=== PATIENT | female | born 1995 | race Caucasian/White ===

== ENCOUNTER 2024-01-10 19:29 | Emergency (ER) | payer OTHER, SELFPAY ==
[2024-01-10 19:35] VITALS: BP 114/70; BMI 24.1
[2024-01-10] MEDS: RABAVERT RABIES VACC W-DILUENT 2.5 UNIT IM (20:16)
--- NOTE | 2024-01-10 20:39 | ED.GENMED ---
History of Present Illness
General
Chief Complaint: Rabies
Source: patient
Exam Limitations: none
Time Seen by Provider: 01/10/24 19:54
Nursing documentation reviewed up to this point in time: agreed with
Travel History
Have you had any contact with someone who has COVID-19?: No
Do you have any symptoms of coronavirus? Fever > 100 degrees, chills, cough, shortness of breath, sore throat, loss of taste or smell, muscle aches, or headache?: No
History of Present Illness
History of Present Illness:
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 She went to urgent care and got a tetanus shot. They sent her here for her rabies vaccines.
Past History
Past History
ED Past Medical History: None
ED Past Surgical History: None
Social History
Tobacco: Non-smoker
Alcohol: None
Drug: None
Personal: Single
Living: with roommate
Employment: Student
Review of Systems
Review of Systems
Allergies reviewed?: Yes
All Other Systems: ROS reviewed and negative except as documented in HPI and ROS
Skin: Reports other (Cat bite pad of left index finger)
Phy Exam
Physical Exam
Physical Exam:
PHYSICAL EXAMINATION:
General: no apparent distress, not acutely ill
Neuro: alert and oriented.
Psychiatric: well kept. interactive and cooperative
Musculoskeletal: Moves with ease
Skin: Warm, pink. Tiny puncture wound mid pad of left index finger. No surrounding swelling or redness. Tendon function intact.
Course
Orders/Labs/Results
Orders:
Orders
01/10/24 20:15
Rabies Vaccine ([facility])/Pf [Rabavert Rabies Vacc W-Diluent] 2.5 unit IM .ONCE ONE
Vital Signs
Initial and Last Documented VS:
Initial Vital Signs
Temp Pulse Resp BP Pulse Ox
98 F 65 16 114/70 99
01/10/24 19:35 01/10/24 19:35 01/10/24 19:35 01/10/24 19:35 01/10/24 19:35
Last Documented Vital Signs
Temp Pulse Resp BP Pulse Ox
98 F 65 16 114/70 99
01/10/24 19:35 01/10/24 19:35 01/10/24 19:35 01/10/24 19:35 01/10/24 19:35
MDM/Problems Addressed
MDM/Problems Addressed:
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 She went to urgent care and got a tetanus shot. They sent her here for her rabies vaccines.
She has been immunized against rabies in the past.
Rabies vaccine given, prescription for outpatient infusion center given so she can follow-up for her next and last vaccine in 3 days.
*Critical Care Note
Total Time (30-74mins, 75-104mins- exclusive of procedures): Not Applicable
ED Attending Note
-
Portions of this chart may have been created with voice recognition software.� Occasional wrong word or��sound alike� substitutions may have occurred due to the inherent limitations of voice recognition software.
Discharge Plan
Departure
Patient Disposition: Home (Routine Discharge)
Patient with high blood pressure during this ER visit?: No
Condition: Good
Discharge Problem:
Need for immunization against rabies, Cat bite of finger
Instructions: Animal Bites (DC)
Prescriptions:
No Action
cetirizine [Zyrtec] 10 mg Tablet
20 mg PO DAILY PRN (Reason: allergies)
norethindrone ac-eth estradiol [Microgestin 1.5/30 (21)] 1.5-30 mg-mcg Tablet
1 tab PO DAILY
fexofenadine [Aminah] 180 mg Tablet
180 mg PO DAILY
sertraline [Zoloft] 50 mg Tablet
75 mg PO DAILY
Probiotic
1 unit PO DAILY
Referrals:
Antonino Peres, DO [Family Provider] -
Activity Restrictions/Additional Instructions:
As we discussed, call the [facility]fusion [facility] Friday and make appointment for Friday 01/12 for your second and last Rabies vaccine.
Interventions
Interventions:
*Risk Screen - Suicide Last Done: 01/10/24 19:35
*General Assessment Last Done: 01/10/24 20:22
*Neglect/Abuse Screening Last Done: 01/10/24 19:35
*ED COVID-19 Vaccine History Last Done: 01/10/24 19:35
*Nursing Disposition Last Done: 01/10/24 20:22
Discharge Date and Time
Discharge Date/Time: 01/10/24 20:22
== END 2024-01-10 20:22 | disposition home or self-care (01) ==
LOC: EMR 19:29
PROVIDERS: EMERGENCY PHYSICIAN Emergency Medicine; FAMILY PHYSICIAN Family Medicine
DX: S61.231A Puncture wound without foreign body of left index finger without damage to nail, initial encounter (principal); W55.01XA Bitten by cat, initial encounter; Y93.89 Activity, other specified; Y92.89 Other specified places as the place of occurrence of the external cause; Y99.0 Civilian activity done for income or pay; Z23 Encounter for immunization; Z20.3 Contact with and (suspected) exposure to rabies
CPT/HCPCS: 99282; 90471; 90675